=== PATIENT | male | born 1960 | race Caucasian/White ===

== ENCOUNTER 2017-05-12 15:37 | Emergency (ER) | payer SELFPAY ==
[2017-05-12] MEDS ORDERED: NORMAL SALINE 1000 ML 1,000 ML IV ONE (16:16)
[2017-05-12] MEDS ORDERED: ONDANSETRON HCL INJ/PF 4 MG/2 ML SDV IV ONE (16:16)
--- NOTE | 2017-05-12 16:18 | ER Document Report ---
ED Medical Screen (RME) - General Chief Complaint: Headache Stated Complaint: NAUSEA Time Seen by Provider: 05/12/17 16:15 Notes: Patient has metastatic lung cancer. He states that he feels "sick". He complains of left-sided axillary and left chest wall pain. He has been vomiting. He is unable to eat. He also has a headache. - Related Data Allergies/Adverse Reactions: No Known Allergies Allergy (Unverified 05/12/17 15:40) Past Medical History - Social History Chew tobacco use (# tins/day): No Frequency of alcohol use: None Drug Abuse: None Renal/ Medical History: Denies: Hx Peritoneal Dialysis Physical Exam - Vital signs Vitals: Temp Pulse Resp BP Pulse Ox 97.6 F 87 14 141/83 H 98 05/12/17 15:47 05/12/17 15:47 05/12/17 15:47 05/12/17 15:47 05/12/17 15:47 Course - Vital Signs Vital signs: Temp Pulse Resp BP Pulse Ox 97.6 F 87 14 141/83 H 98 05/12/17 15:47 05/12/17 15:47 05/12/17 15:47 05/12/17 15:47 05/12/17 15:47
--- NOTE | 2017-05-12 17:11 | RADIOLOGY REPORT (SQ) ---
EXAM DESCRIPTION: CHEST SINGLE VIEW COMPLETED DATE/TIME: 05/12/2017 4:56 pm REASON FOR STUDY: cp/lung ca COMPARISON: None. EXAM PARAMETERS: NUMBER OF VIEWS: One view. TECHNIQUE: Single frontal radiographic view of the chest acquired. RADIATION DOSE: NA LIMITATIONS: None. FINDINGS: LUNGS AND PLEURA: Predominately linear densities are identified in the left mid and lower lung field which could represent atelectatic changes or pneumonic infiltrates. There are underlying chronic appearing changes. MEDIASTINUM AND HILAR STRUCTURES: I cannot exclude a left hilar mass although this may represent scar ring. HEART AND VASCULAR STRUCTURES: Heart normal in size. Normal vasculature. BONES: No acute findings. HARDWARE: None in the chest. OTHER: No other significant finding. IMPRESSION: Predominately linear densities in the left mid and lower lung field which could represen t atelectatic changes or pneumonic infiltrates. There are underlying chronic appearing changes. I c annot exclude a left hilar mass although this may represent scarring. Clinical correlation and follo wup is recommended. TECHNICAL DOCUMENTATION: JOB ID: [id number] [employer]- All Rights Reserved Reading location - IP/workstation name: [email or web address]
[2017-05-12 17:48] LABS: ABSOLUTE BASOPHILS # (AUTO) 0.1 10^3/uL (0.0-0.2); ABSOLUTE EOSINOPHILS # (AUTO) 1.1 10^3/uL (0.0-0.6); ABSOLUTE LYMPHOCYTES (AUTO) 1.5 10^3/uL (0.5-4.7); ABSOLUTE MONOCYTES (AUTO) 1.2 10^3/uL (0.1-1.4); ABSOLUTE NEUT (AUTO) 9.9 10^3/uL (1.7-8.2); BASOPHILS % (AUTO) 0.9 % (0-2); HEMATOCRIT 40.6 % (37.9-51.0); LYMPHOCYTES % (AUTO) 10.6 % (13-45); MEAN CORPUSCULAR HEMOGLOBIN 25.5 pg (27.0-33.4); MEAN CORPUSCULAR HGB CONC 31.9 g/dL (32.0-36.0); MEAN CORPUSCULAR VOLUME 80 fl (80-97); MONOCYTES % (AUTO) 8.4 % (3-13); PLATELET COUNT 342 10^3/uL (150-450); RED BLOOD COUNT 5.09 10^6/uL (4.35-5.55); RED CELL DISTRIBUTION WIDTH 17.2 % (11.5-14.0); SEGMENTED NEUTROPHILS % (AUTO) 72.1 % (42-78); TOTAL CELLS COUNTED % (AUTO) 100 %; WHITE BLOOD COUNT 13.7 10^3/uL (4.0-10.5)
[2017-05-12 18:01] LABS: ALANINE AMINOTRANSFERASE 21 U/L (21-72); ALKALINE PHOSPHATASE 72 U/L (38-126); ANION GAP 9 (5-19); ASPARTATE AMINO TRANSFERASE 13 U/L (17-59); BILIRUBIN,DIRECT 0.1 mg/dL (0.0-0.4); BILIRUBIN,TOTAL 0.4 mg/dL (0.2-1.3); BLOOD UREA NITROGEN 9 mg/dL (7-20); CARBON DIOXIDE 28 mmol/L (22-30); CHLORIDE 96 mmol/L (98-107); GLUCOSE 96 mg/dL (75-110); LIPASE 1365.4 U/L (23-300); POTASSIUM 4.1 mmol/L (3.6-5.0); SODIUM 133.3 mmol/L (137-145); TOTAL PROTEIN 7.4 g/dL (6.3-8.2)
--- NOTE | 2017-05-12 19:04 | EKG REPORT ---
SEVERITY:- BORDERLINE ECG - SINUS RHYTHM LOW VOLTAGE IN FRONTAL LEADS BORDERLINE R WAVE PROGRESSION, ANTERIOR LEADS : Confirmed by: Dominic Parkinson MD 12-May-2017 19:03:41
[2017-05-12 19:50] LABS: APPEARANCE,URINE CLEAR; BILIRUBIN,URINE NEGATIVE (NEGATIVE); COLOR,URINE YELLOW; GLUCOSE, URINE NEGATIVE (NEGATIVE); KETONES,URINE NEGATIVE (NEGATIVE); LEUKOCYTE ESTERASE,URINE NEGATIVE (NEGATIVE); NITRITE,URINE NEGATIVE (NEGATIVE); PROTEIN,URINE NEGATIVE (NEGATIVE); URINE SPECIFIC GRAVITY 1.004; UROBILINOGEN,URINE NEGATIVE mg/dL (<2.0)
[2017-05-12 20:09] VITALS: BP 113/82
--- NOTE | 2017-05-12 20:17 | ER Document Report ---
ED General - General Chief Complaint: Headache Stated Complaint: NAUSEA Time Seen by Provider: 05/12/17 16:15 Notes: Patient is a 56-year-old male with a past medical history of metastatic lung cancer a candidate for any kind of chemotherapeutic or radiation therapy who presents with 3 days of nausea, vomiting, inability to tolerate oral fluids. She states that symptoms started 3 days ago and have been unchanged since that time. He notes that he has had difficulty tolerating even liquids. He denies a history of similar symptoms in the past. Nothing seems to improve or worsen his symptoms. He notes an associated dull, constant, aching pain to his upper abdomen. He does not have a primary care physician. He does not currently follow actively with an oncologist. He denies any associated fever, headache, neck pain or confusion. - Related Data Allergies/Adverse Reactions: No Known Allergies Allergy (Unverified 05/12/17 15:40) Past Medical History - General Information source: Patient - Social History Smoking Status: Current Every Day Smoker Chew tobacco use (# tins/day): No Frequency of alcohol use: None Drug Abuse: None Lives with: Spouse/Significant other Family History: Reviewed & Not Pertinent Patient has suicidal ideation: No Patient has homicidal ideation: No Renal/ Medical History: Denies: Hx Peritoneal Dialysis Review of Systems - Review of Systems Notes: Constitutional: Negative for fever. HENT: Negative for sore throat. Eyes: Negative for visual changes. Cardiovascular: Negative for chest pain. Respiratory: Negative for shortness of breath. Gastrointestinal: Positive for abdominal pain and vomiting Genitourinary: Negative for dysuria. Musculoskeletal: Negative for back pain. Skin: Negative for rash. Neurological: Negative for headaches, weakness or numbness. 10 point ROS negative except as marked above and in HPI. Physical Exam - Vital signs Vitals: Temp Pulse Resp BP Pulse Ox 97.6 F 87 14 141/83 H 98 05/12/17 15:47 05/12/17 15:47 05/12/17 15:47 05/12/17 15:47 05/12/17 15:47 Interpretation: Normal Notes: PHYSICAL EXAMINATION: GENERAL: Chronically ill in appearance, no acute distress HEAD: Atraumatic, normocephalic. EYES: Pupils equal round and reactive to light, extraocular movements intact, sclera anicteric, conjunctiva are normal. ENT: nares patent, oropharynx clear without exudates. Dry mucous membranes. NECK: Normal range of motion, supple without lymphadenopathy LUNGS: Breath sounds clear to auscultation bilaterally and equal. No wheezes rales or rhonchi. HEART: Regular rate and rhythm without murmurs ABDOMEN: Soft, focal tenderness to the epigastrium without rebound or guarding. No rigidity. No other localized areas of tenderness EXTREMITIES: Normal range of motion, no pitting or edema. No cyanosis. NEUROLOGICAL: No focal neurological deficits. Moves all extremities spontaneously and on command. PSYCH: Normal mood, normal affect. SKIN: Warm, Dry, normal turgor, no rashes or lesions noted. Course - Re-evaluation Re-evalutation: 05/12/17 20:17 Patient presents with epigastric abdominal pain, nausea, vomiting and lack of a bowel movement for the past 3 days. He arrived tachycardic, dehydrated, has improved after receiving fluids and antiemetics. Patient has known metastatic lung cancer with known metastases to the adrenal glands. His laboratories do suggest a diagnosis of acute pancreatitis. However I stressed the patient significant concern with possible ability of intra-abdominal metastases including the pancreas that could be the etiology of his presentation or a possible bowel obstruction. Patient states that he does not have insurance, does not want any CT imaging, and does not want hospitalization. He states he will return to the emergency room if he has persistent symptoms. I spent an extensive period of time at the bedside with the patient and his family who are likewise in agreement with this plan. I have also referred the patient case management to see if there are any additional services that we can provide to this patient. I provided him with pain control, nausea medications as well as rectal Phenergan as a backup modality to control his nausea and vomiting. At this time will discharge with return precautions and follow-up recommendations. Verbal discharge instructions given a the bedside and opportunity for questions given. Medication warnings reviewed. Patient is in agreement with this plan and has verbalized understanding of return precautions and the need for primary care follow-up in the next 24-72 hours. - Vital Signs Vital signs: Temp Pulse Resp BP Pulse Ox 97.8 F 87 13 113/82 98 05/12/17 20:30 05/12/17 15:47 05/12/17 20:01 05/12/17 20:01 05/12/17 20:00 - Laboratory Result Diagrams: 05/12/17 17:15 05/12/17 17:15 Laboratory results interpreted by me: 05/12/17 05/12/17 17:15 17:15 WBC 13.7 H Hgb 13.0 L MCH 25.5 L MCHC 31.9 L RDW 17.2 H Lymphocytes % 10.6 L Eosinophils % 8.0 H Absolute Neutrophils 9.9 H Absolute Eosinophils 1.1 H Sodium 133.3 L Chloride 96 L AST 13 L Lipase 1365.4 H Discharge - Discharge Clinical Impression: Metastatic primary lung cancer Qualifiers: Laterality: unspecified laterality Qualified Code(s): C34.90 - Malignant neoplasm of unspecified part of unspecified bronchus or lung Nausea and vomiting Qualifiers: Vomiting type: unspecified Vomiting Intractability: non-intractable Qualified Code(s): R11.2 - Nausea with vomiting, unspecified Pancreatitis Qualifiers: Chronicity: acute Pancreatitis type: unspecified pancreatitis type Acute pancreatitis complication: unspecified Qualified Code(s): K85.90 - Acute pancreatitis without necrosis or infection, unspecified Condition: Stable Disposition: HOME, SELF-CARE Additional Instructions: You are always welcome back here in the emergency department if you would like to return and have a complete assessment of the cause of your vomiting which I am concerned is related to your malignancy. You do have pancreatitis. You are being sent home with nausea medicines as well as a different kind of pain medication to try to control your pain nausea at home. For your pain: Take ibuprofen 600 mg and acetaminophen 1000 mg every 6 hours together as needed for pain. If this does not control your pain you may take 15 mg of oral morphine every 4 hours as needed. Please be very careful about using the oral morphine and only use this for severe pain. You may take 4-8 mg of Zofran every 4 hours as needed for severe nausea. You may use rectal Phenergan for nausea not controlled by Zofran or if you become unable to take pills by mouth. Prescriptions: Morphine Sulfate [Morphine Ir 15 mg Tablet] 7.5 - 30 mg PO Q4HP PRN #60 tablet PRN Reason: Ondansetron [Zofran Odt 4 mg Tablet] 1 - 2 tab PO Q4H PRN #30 tab.rapdis PRN Reason: For Nausea/Vomiting Promethazine HCl [Phenergan 25 mg Supp.rect] 1 supp [place] Q6H #12 supp.rect
== END 2017-05-12 20:30 | disposition home or self-care (01) ==
LOC: ER 15:37
DX: C34.90 Malignant neoplasm of unspecified part of unspecified bronchus or lung (principal); K85.90 Acute pancreatitis without necrosis or infection, unspecified; R11.2 Nausea with vomiting, unspecified; R51 Headache; F17.200 Nicotine dependence, unspecified, uncomplicated; R10.13 Epigastric pain; R00.0 Tachycardia, unspecified; K59.00 Constipation, unspecified; Z85.89 Personal history of malignant neoplasm of other organs and systems
CPT/HCPCS: 93005; 99284; 96361; 96374; 36415; 83690; 85025; 80053; 81001; 84484; 71045; 93010; J2405; J7030